=== PATIENT | male | born 2000 | race African-American/Black ===

== ENCOUNTER 2022-05-04 01:46 | Emergency (ER) | payer SELFPAY ==
[2022-05-04] MEDS ORDERED: ONDANSETRON 4 MG/2 ML VIAL ONE (02:16)
[2022-05-04] MEDS ORDERED: NA CHLORIDE 0.9% 1,000 ML ONE (02:21)
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
[2022-05-04 04:09] VITALS: TEMP 97.6; O2SAT 100
[2022-05-04 04:11] VITALS: BP 107/82
== END 2022-05-04 04:04 | disposition home or self-care (01) ==
LOC: ER 01:46
DX: F10.129 Alcohol abuse with intoxication, unspecified (principal)
CPT/HCPCS: 96374; 99284; J2405; J7030

== ENCOUNTER 2024-11-16 18:12 | Emergency (ER) | payer BC, OTHER ==
--- OUTSIDE RECORDS SUMMARY | 2024-11-16 18:15 | XMS REPORT | Continuity of Care Document ---
Author Name Unknown Address [address] [place] [address] [facility] Address [address] [place] [address] Care Team Providers Care Detacker Name Role Phone Pcp, Patient Does Not Have A Primary Care Physic jaden LUPE CARTER Attending Clinician Unavailable LUPE CARTER Attending Clinician Unavailable Lupe Carter NP Attending Clinician [phone] Payers Payer Name Policy Type Policy Number Effective Date Expirati on Date Source [facility] [id number] 2023 00:00:00 Allergies, Adverse Reactions, Alerts Allergy Name Allergy Type Status Severity Reaction(s) Onset Date Inactive Date Treating Clinician Comments Source NO KNOWN ALLERGIE S Drug Class Active [facility] Social History Social Habit Start Date Stop Date Quantity Comments Source Sexual orientation U [facility] Sex assigned at 2000 00:00:00 2000 00:00:00 [facility] Smoking Status Start Date Stop Date Source Tobacco smoking consumption unknown [facility] Medications Ordered Medication Name Filled Medication Name Start Date Stop Date Current Medication? Ordering Clinician Indication Dosage Frequency Signature (SIG) Comments Components Source cefTRIAXone (ROCEPHIN) injection 500 mg 07-11 23:30: 00 07-11 22:51 :00 No 500mg 500 mg, Intramuscu lar, ONCE, 1 dose, On 07/11/24 at 1830, URSULA, Reason for Anti-Infec tive: Empiric Therapy for Suspected Infection, Empiric Therapy Site: Pelvic, Duration of therapy: Once (ED) [facility] doxycycline hyclate (Vibramycin ) capsule 100 mg 07-11 22:45: 00 07-11 22:50 :00 No 100mg 100 mg, Oral, ONCE, 1 dose, On 07/11/24 at 1745, URSULA, Reason for Anti-Infec tive: Empiric Therapy for Suspected Infection, Empiric Therapy Site: Pelvic, Duration of therapy: Once (ED) [facility] doxycycline hyclate 100 mg capsule 07-11 00:00: 00 Yes [id number] 100mg Take 1 capsule by mouth in the morning and 1 capsule in the evening. [facility] Vital Signs Vital Name Observation Time Observation Value Comments S marni Systolic blood pressure 2024-07-11 22:49:58 133 mm[Hg] [facility] Diastolic blood pressure 2024-07-11 22:49:58 82 mm[Hg] [facility] Heart rate 2024-07-11 22:49:58 69 /min [facility] Body temperature 2024-07-11 22:49:58 37.22 Lizzie [facility] Respiratory rate 2024-07-11 22:49:58 16 /min [facility] Oxygen saturation in Arterial blood by Pulse oximetry 2024-07-11 22:49:58 100 /min [facility] Body height 2024-07-11 20:59:00 185.4 cm [facility] Body weight 2024-07-11 20:59:00 88.451 kg [facility] BMI 2024-07-11 20:59:00 25.73 kg/m2 [facility] Procedures Procedure Date / Time Performed Performing Clinicia n Source URINALYSIS 2024-07-11 21:11:00 Lupe Carter [facility] INFLUENZA A/B RSV COVID NAAT 2024-07-11 21:11:00 Lupe Carter [facility] HIV 1/2 AG-AB WITH REFLEX 2024-07-11 21:11:00 Lupe Carter [facility] Encounters Start Date/Time End Date/Time Encounter Type Admission Type Attending Clinicians Care Facility Care Department Encounter ID Source 2024-07-11 16:23:00 2024-07-11 18:04:00 Emergency X LUPE CARTER [facility] ERT [id number] [facility] 2024-07-11 16:23:00 2024-07-11 18:04:00 Emergency Lupe Carter [facility] [id number] [facility] Results Test Description Test Time Test Comments Results Result Co mments Source [facility] Notes Date/Time Note Provider Source 2024-07-11 18:03:06 Patient given discharge instructions on urethral discharge. Given prescription X 1 for doxycycline. Advised to take abx course until complete. Pt advised to follow up with pcp. Pt left ER ambulatory. No signs of distress. Wandy Tadeo RN [facility] 2024-07-11 15:57:18 Patient states "I haven't feeling good recently. I have been having cold chills.." Patient is concerned about an STD, states that he has had some discharge from his penis intermittently, describes it as white in color. Patient states that he had penile discharge this morning. Roge Larios RN [facility]
[2024-11-16] MEDS ORDERED: MORPHINE 2 MG/ML SYR ONE (18:36)
[2024-11-16] MEDS ORDERED: NA CHLORIDE 0.9% 1,000 ML ONE (18:36)
[2024-11-16] MEDS ORDERED: ONDANSETRON 4 MG/2 ML VIAL ONE (18:36)
[2024-11-16] MEDS ORDERED: KETOROLAC 30 MG/ML INJ ONE (18:36)
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
[2024-11-17 00:34] VITALS: O2SAT 100
[2024-11-17 00:37] VITALS: BP 128/89; TEMP 98.3
== END 2024-11-16 19:35 | disposition home or self-care (01) ==
LOC: ER 18:12
DX: R51.9 Headache, unspecified (principal); V49.49XA Driver injured in collision with other motor vehicles in traffic accident, initial encounter
CPT/HCPCS: 96361; 70450; 72125; 96375; 96374; 99284; J2270; J2405; J7030